=== PATIENT | female | born 1955 | race Caucasian/White ===

== ENCOUNTER 2019-11-07 14:32 | Emergency (ER) | payer MEDICARE, BC ==
[~2019-11-07] VITALS: Ht 167.6 cm; Wt 90.7 kg
[2019-11-07] MEDS ORDERED: TOPAMAX25 M1 PO (14:44)
[2019-11-07] MEDS ORDERED: PLAQUENIL200 MG PO (14:44)
[2019-11-07] MEDS ORDERED: OMEPRAZOLE 20 M20 M1 PO (14:44)
[2019-11-07] MEDS ORDERED: LIPITOR10 MG PO (14:44)
[2019-11-07] MEDS ORDERED: ARICEPT10 M1 PO (14:44)
[2019-11-07 15:22] LABS: ABSOLUTE LYMPHOCYTES 1.1 thou/uL (0.8-5.3); ABSOLUTE MONOCYTES 0.4 thou/uL (0.0-1.2); ABSOLUTE NEUTROPHILS 8.8 thou/uL (1.6-8.1); BASOPHILS 0.3 %; EOSINOPHILS 0.4 %; LYMPHOCYTES 10.4 %; MCH 31.4 pg (26.0-34.0); MCHC 34.8 g/dL (28.0-37.0); MCV 90.1 fL (80.0-100.0); MONOCYTES 4.1 %; MPV 8.8 fl. (7.2-11.1); NUCLEATED RBCS 0 /100WBC; PLATELET COUNT* 205 thou/uL (150-400); POLYS 84.8 %; RBC 4.77 mil/uL (4.20-5.00); WBC 10.4 thou/uL (4.0-11.0)
[2019-11-07 15:30] LABS: CALCIUM 8.9 mg/dL (8.5-10.1); CREATININE 1.1 mg/dL (0.6-1.3); POTASSIUM 3.9 mmol/L (3.5-5.1)
[2019-11-07 15:34] LABS: ALBUMIN 4.2 g/dL (3.4-5.0); MAGNESIUM 2.1 mg/dL (1.8-2.4); TOTAL BILIRUBIN 0.3 mg/dL (<0.1-1.0); TOTAL PROTEIN 7.8 g/dL (6.4-8.2)
[2019-11-07 16:43] LABS: URINE BILIRUBIN NEGATIVE (Negative); URINE BLOOD NEGATIVE (Negative); URINE CLARITY CLEAR; URINE COLOR YELLOW; URINE GLUCOSE-RANDOM NEGATIVE (Negative); URINE KETONES NEGATIVE (Negative); URINE LEUKOCYTES-REFLEX NEGATIVE (Negative); URINE NITRITE-REFLEX NEGATIVE (Negative); URINE PROTEIN NEGATIVE (Negative); URINE SPECIFIC GRAVITY >= 1.030 (1.005-1.030); URINE UROBILINOGEN 0.2 E.U./dl (0.2-1.0)
[2019-11-07] MEDS ORDERED: PHENERGAN 25 MG25 M1 PO (18:04)
[2019-11-07 18:19] VITALS: BP 136/76
== END 2019-11-07 18:20 | disposition home or self-care (01) ==
LOC: M.ERS 14:32
PROVIDERS: Personal Emergency Response Attendant
DX: K52.9 Noninfective gastroenteritis and colitis, unspecified (principal); R11.2 Nausea with vomiting, unspecified; Z90.710 Acquired absence of both cervix and uterus; Z90.49 Acquired absence of other specified parts of digestive tract; Z96.653 Presence of artificial knee joint, bilateral; Z88.8 Allergy status to other drugs, medicaments and biological substances